=== PATIENT | male | born 1995 | race Caucasian/White ===

== ENCOUNTER 2021-11-25 12:23 | Outpatient (CLI) | payer BC, SELFPAY ==
--- NOTE | ~2021-11-25 | CT_ITS ---
EXAMINATION: CT brain wo con DATE: 11/25/2021 12:56 INDICATION: Localized swelling, mass, neck TECHNIQUE: Computed tomography (CT) of the head was performed without intravenous contrast. The mA wa s adjusted according to patient size. Iterative reconstruction technique was employed. Exam dose: 52 9.67 mGy-cm total exam DLP. COMPARISON: 01/2019 CT head FINDINGS: No intracranial mass lesion or hemorrhage or cerebrovascular accident. No midline shift or mass effect. Normal ventricular size. Normal tripp-white matter differentiation. No subdural or epidural hematoma. Or pleural contents appear normal. Approximately 2.9 x 4.1 cm lipoma is noted in the posterior upper cervical/occipital junction. Simila r finding is present on 02/01/2019 CT examination. No fracture or bone destruction of the cranial vault. Mastoid air cells and included paranasal sinuse s are unremarkable. 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 Reviewed, dictated and finalized at [facility].
--- NOTE | ~2021-11-25 | CT_ITS ---
EXAMINATION: CT soft tissue neck wo con DATE: 11/25/2021 12:56 INDICATION: Localized swelling. Mass posterior left neck for 1-2 years. TECHNIQUE: Computed tomography (CT) of the neck was performed without intravenous contrast. The dose- length product was 546.87 mGy-cm. Automated exposure control and iterative reconstruction technique w ere employed. COMPARISON: CT dated 02/01/2019 FINDINGS: There has been slight interval enlargement of a benign-appearing intramuscular semispinalis lipoma in the left posterior neck, likely corresponding to the area of palpable concern. This mass m easures 4.4 x 3.2 x 7.3 cm compared with 3.5 x 2.8 x 6[address] dated 02/01/2019. No significant intracranial abnormality is identified. Orbits are symmetric. No abnormality of the mu cosal or parapharyngeal spaces. Lung parenchyma is unremarkable. No adenopathy. Thyroid gland is unre markable. No prevertebral soft tissue swelling. Mild lower cervical spondylosis. IMPRESSION: 1. Slight enlargement of fat-containing mass left posterior neck compared with CT dated 02/01/2019, c ompatible with semispinalis lipoma. Reviewed, dictated and finalized at [facility]. IMPRESSION: 1. Slight enlargement of fat-containing mass left posterior neck compared with CT dated 02/01/2019, compatible with semispinalis lipoma.
== END 2021-11-25 12:24 | disposition home or self-care (01) ==
PROVIDERS: PCP Physician Assistant; Visit Provider Nurse Practitioner
DX: R22.1 Localized swelling, mass and lump, neck (principal); D17.0 Benign lipomatous neoplasm of skin and subcutaneous tissue of head, face and neck
CPT/HCPCS: 70450; 70490